=== PATIENT | male | born 1970 | race Native Hawaiian/Other Pacific Islander ===

== ENCOUNTER 2019-08-04 08:03 | Emergency (ER) | payer OTHER ==
[~2019-08-04] VITALS: Ht 185.4 cm; Wt 121.1 kg
[2019-08-04 08:30] VITALS: TEMP 99.7
[2019-08-04 08:45] VITALS: BP 108/56
[2019-08-04 09:44] LABS: POTASSIUM 3.6 mmol/L (3.6-5.2)
[2019-08-04 09:46] LABS: PLATELET COUNT 323 K/uL (142-355)
[2019-08-04] MEDS ORDERED: TRAZ100T PO (10:05)
[2019-08-04] MEDS ORDERED: SIMV20TA2 PO (10:06)
[2019-08-04] MEDS ORDERED: CLON1TAB18 PO (10:07)
[2019-08-04] MEDS ORDERED: HYZAAR1 TA2 PO (10:08)
[2019-08-04] MEDS ORDERED: LAMICTAL200 MG PO (10:09)
[2019-08-04] MEDS ORDERED: SERT50TA PO (10:09)
[2019-08-04] MEDS ORDERED: SEROQUEL200 MG PO (10:11)
[2019-08-04] MEDS ORDERED: SEROQUEL400 MG PO (10:11)
[2019-08-04] MEDS ORDERED: MONT10TA PO (10:12)
[2019-08-04] MEDS ORDERED: LEVO0.0218 PO (10:13)
[2019-08-04] MEDS ORDERED: NEXIUM40 M1 PO (10:14)
== END 2019-08-04 12:18 | disposition home or self-care (01) ==
LOC: ED 08:03
PROVIDERS: Emergency Medicine
DX: G44.209 Tension-type headache, unspecified, not intractable (principal); E66.8 Other obesity; L02.31 Cutaneous abscess of buttock
CPT/HCPCS: 80053; 83605; 83735; 84484; 85027; 87040; 93005; 96361; 96365; 99284; J0696; J1885

== ENCOUNTER 2021-05-07 13:19 | Outpatient (CLI) | payer OTHER ==
[~2021-05-07] VITALS: Ht 177.8 cm; Wt 121.6 kg
[~2021-05-07 13:19] MED LIST: CLON1TAB18 PO; HYZAAR1 TA2 PO; LAMICTAL200 MG PO; LEVO0.0218 PO; MONT10TA PO; NEXIUM40 M1 PO; SEROQUEL200 MG PO; SEROQUEL400 MG PO; SERT50TA PO; SIMV20TA2 PO; TRAZ100T PO
== END 2021-05-07 20:19 | disposition home or self-care (01) ==
LOC: INF 13:19
PROVIDERS: ATTEND Internal Medicine Endocrinology, Diabetes & Metabolism
DX: Z23 Encounter for immunization (principal); U07.1 COVID-19
CPT/HCPCS: 96365; M0244

== ENCOUNTER 2022-10-29 10:34 | Outpatient (CLI) | payer OTHER | END 2022-10-29 21:21 | disposition home or self-care (01) | LOC: RAD 10:34 | PROVIDERS: ATTEND Internal Medicine Pulmonary Disease | DX: R06.09 Other forms of dyspnea (principal) ==

== ENCOUNTER 2023-05-24 08:43 | Outpatient (CLI) | payer OTHER | END 2023-05-24 18:56 | disposition home or self-care (01) | LOC: RAD 08:43 | PROVIDERS: ATTEND Nurse Practitioner Family | DX: J18.9 Pneumonia, unspecified organism (principal) ==

== ENCOUNTER 2023-06-30 09:15 | Outpatient (CLI) | payer OTHER | END 2023-06-30 19:02 | disposition home or self-care (01) | LOC: US 09:15 | PROVIDERS: ATTEND Registered Nurse | DX: E04.1 Nontoxic single thyroid nodule (principal) ==